=== PATIENT | male | born 1950 | race Caucasian/White ===

== ENCOUNTER 2017-10-18 21:00 | Emergency (ER) | payer OTHER, MEDICARE ==
--- NOTE | 2017-10-18 22:07 | EDPHY ---
H & P Time Seen by Provider: 10/18/17 21:54 HPI/ROS: CHIEF COMPLAINT: Hypertension HISTORY OF PRESENT ILLNESS: Patient has a longstanding history of hypertension on lisinopril. Typical is dose is 40 mg a day, he is traveling from [place] here to see his son and then is going to [place] on October 25 and will be back in [place] at the end of October. [facility] and was in the [facility] in [place] yesterday. He took 80 mg of oral lisinopril because his blood pressure was high and the [facility] told him to keep doing that daily. He took 80 mg this morning but blood pressure was 197/105 at home on his BP machine and he presents for evaluation. Specifically denies headache or visual symptoms, dizziness, chest pain or shortness of breath. Says he does notice the altitude but isn't actually dyspneic. REVIEW OF SYSTEMS: Eye: no change in vision ENT: no sore throat Cardiac: no chest pain or syncope Pulmonary: No coughing Abdomen: no vomiting, diarrhea, abdominal pain Musculoskeletal: Chronic back pain unchanged,no neck pain Skin: no rash Neuro: no headache or dizzy or vertigo Constitutional: no fever : Frequent urination with a large prostate, unchanged A comprehensive 10 point review of systems is otherwise negative aside from elements mentioned in the history of present illness. PAST MEDICAL HISTORY: DVT on warfarin, noncancerous pancreatic tumor, splenectomy, cholecystectomy. 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 BPH. Social history: Lives in [place], primary [facility] is at [facility] as [facility]. General Appearance: Alert and conversant, cooperative, smiles. Eyes: No scleral icterus. Pupils equal and reactive extraocular motion intact. ENT, Mouth: Normal mucous membranes. Respiratory: Normal respiratory effort, breath sounds equal, lungs are clear to auscultation. No rales. Cardiovascular: Regular rate and rhythm. No murmur. Gastrointestinal: Abdomen is soft and non tender. Neurological: Alert, face symmetric, normal motor and sensory in extremities. Not ataxic. Skin: Warm and dry, no rashes. Musculoskeletal: No peripheral edema. Psychiatric: Not agitated. Emergency Department course/MDM: I think it is unlikely the patient has acute hypertensive emergency. He does not have signs or symptoms of end-organ damage. Attempted to contact [facility] emergency, but they are currently unavailable. I think it is reasonable for him to continue his lisinopril as prescribed 80 mg a day as his blood pressure here is 155/93, 172/88. Smoking Status: Never smoked Constitutional: Initial Vital Signs Temperature (C) 36.7 C 10/18/17 21:06 Heart Rate 77 10/18/17 21:06 Respiratory Rate 20 10/18/17 21:06 Blood Pressure 155/93 H 10/18/17 21:06 O2 Sat (%) 94 10/18/17 21:06 O2 Delivery Mode Room Air Allergies/Adverse Reactions: No Known Allergies Allergy (Unverified 10/18/17 21:04) Home Medications: Medication Instructions Recorded Hydrocodone-Acetamin 5-325 mg 10/18/17 Lisinopril 10/18/17 Methocarbamol 10/18/17 Tamsulosin HCl 10/18/17 Warfarin Sodium 10/18/17 MDM/Departure - Depart Disposition: Home, Routine, Self-Care Clinical Impression: Hypertension Qualifiers: Hypertension type: unspecified Qualified Code(s): I10 - Essential (primary) hypertension Condition: Good Instructions: Hypertension (ED) Referrals: NONE *PRIMARY CARE P,. [Primary Care Provider] - As per Instructions ([facility] in [place]; call tomorrow to ask about your blood pressure medications.)
[2017-10-18 22:26] VITALS: BP 172/88
== END 2017-10-18 22:25 | disposition home or self-care (01) ==
DX: I10 Essential (primary) hypertension (principal); Z79.01 Long term (current) use of anticoagulants